=== PATIENT | female | born 1985 | race Caucasian/White ===

== ENCOUNTER → 2018-09-12 | Outpatient (CLI) | payer MEDICAID | LOC: FIMAGING 09:35 | PROVIDERS: ATTEND Obstetrics & Gynecology | DX: O44.12 Complete placenta previa with hemorrhage, second trimester (principal); Z3A.26 26 weeks gestation of pregnancy ==

== ENCOUNTER 2018-10-18 10:11 | Observation (INO) | payer MEDICAID ==
[2018-10-18] MEDS ORDERED: ACETAMINOPHEN 500 MG TAB PO ONE (10:45)
[2018-10-18] MEDS: LR 1,000 ML IV SCH ×5 (11:15→21:12)
[2018-10-18] MEDS ORDERED: BETAMETHASONE IM SYRINGE IM ONE (15:00)
[2018-10-18] MEDS ORDERED: OLIVE OIL 118 ML BTL MISC ONE (18:33)
[2018-10-18] MEDS ORDERED: LIDOCAINE 1% 300 MG/30 ML SDV ONE (18:33)
[2018-10-18] MEDS ORDERED: AMMONIA AROMATIC 1 EACH AMP IH ONE (18:34)
[2018-10-18] MEDS ORDERED: MISOPROSTOL 200 MCG TAB ONE (18:34)
[2018-10-18] MEDS ORDERED: TERBUTALINE SULFATE 1 MG/ML VIAL ONE (18:34)
[2018-10-18] MEDS ORDERED: OXYTOCIN 10 UNIT/ML VIAL ONE (18:34)
[2018-10-18] MEDS: NIFEdipine 10 MG CAP PO SCH ×2 (19:38→23:49)
[2018-10-19] MEDS ORDERED: ZOLPIDEM TARTRATE 5 MG TAB PO ONE (00:15)
[2018-10-19] MEDS: NIFEdipine 10 MG CAP PO SCH ×2 (05:53→11:58)
[2018-10-19] MEDS: LR 1,000 ML IV SCH ×2 (05:57→16:32)
[2018-10-19] MEDS ORDERED: BETAMETHASONE IM SYRINGE IM ONE (15:00)
[2018-10-19] MEDS ORDERED: NIFEdipine 10 MG CAP PO SCH (18:54)
== END 2018-10-19 21:28 | disposition home or self-care (01) ==
DX: O47.03 False labor before 37 completed weeks of gestation, third trimester (principal); O44.13 Complete placenta previa with hemorrhage, third trimester; O21.0 Mild hyperemesis gravidarum; O99.013 Anemia complicating pregnancy, third trimester; Z3A.33 33 weeks gestation of pregnancy; D64.9 Anemia, unspecified

== ENCOUNTER 2018-11-05 20:05 | Inpatient (IN) | payer MEDICAID ==
[2018-11-05 20:31] LABS: PLATELET COUNT 224 10^3/uL (150-400)
[2018-11-05] MEDS ORDERED: PHENYLEPHRINE HCL 100 MCG/ML SYR IVP PRN (20:33)
[2018-11-05] MEDS ORDERED: ONDANSETRON 4 MG/2 ML VIAL IVP PRN (20:33)
[2018-11-05] MEDS ORDERED: NALOXONE HCL 0.4 MG/ML INJ IVP PRN (20:33)
[2018-11-05] MEDS ORDERED: fentaNYL 100 MCG/2 ML INJ IVP PRN (20:33)
[2018-11-05] MEDS ORDERED: HYDROmorphONE/DILAUDID 1 MG/ML INJ IVP PRN (20:33)
--- NOTE | 2018-11-05 20:36 | PREANESOB ---
Obstetric Pre-Anesthesia Info - General Info Proposed Procedure: NPO Start Time: 18:00 : 2 Para: 1 LEONARD: 12/02/18 Gestational Age: 36 week(s) and 1 day(s) - Info Status: Full Term - Labor Status Section History: Primary Anesthesia Allergies/Adverse Reactions: Allergy/AdvReac Type Severity Reaction Status Date / Time Theophylline Allergy Severe Anaphylaxis Uncoded 11/05/18 20:13 Home Medications: Medication Instructions Recorded Vit27&Calcium/Iron/FA 1 tab PO DAILY 10/18/18 [] - Vital Signs Latest Vital Signs (Nursing): Temp Pulse Resp BP Pulse Ox 37.3 C 70 16 114/69 96 11/05/18 20:24 11/05/18 20:24 11/05/18 20:24 11/05/18 20:24 11/05/18 20:24 Height/Weight (Nursing): Height 64 cm Weight 74.843 kg - Focused Exam Neck exam: FROM Mallampati Score: Class 2 Mouth exam: normal dental/mouth exam Pulmonary: clear to auscultation Cardiovascular: regular rate and rhythym Labs: 11/05/18 20:18 - Plan Consent Signed and on Chart: Yes
[2018-11-05] MEDS ORDERED: BUPIVACAINE/DEXTROSE 7.5MG/ML 2 ML SPINAL AMP SP ONE (20:37)
[2018-11-05] MEDS ORDERED: LR 500 ML IV ONE (20:37)
[2018-11-05] MEDS ORDERED: morphINE PF 5 MG/10 ML INJ ONE (20:37)
[2018-11-05] MEDS ORDERED: ceFAZolin 2 GM/DEXTROSE 100 ML IV ONE (20:37)
[2018-11-05] MEDS ORDERED: RANITIDINE 50 MG/2 ML VIAL ONE (20:38)
[2018-11-05] MEDS ORDERED: OXYTOCIN 100 UNITS/10 ML VIAL ONE (20:39)
[2018-11-05] MEDS ORDERED: OXYTOCIN 10 UNIT/ML VIAL ONE (20:39)
[2018-11-05] MEDS ORDERED: MISOPROSTOL 200 MCG TAB ONE (20:39)
[2018-11-05] MEDS ORDERED: ONDANSETRON 4 MG/2 ML VIAL ONE (20:39)
[2018-11-05] MEDS ORDERED: HEMABATE 250 MCG/1 ML AMP IM ONE (20:39)
[2018-11-05] MEDS ORDERED: TRANEXAMIC ACID 1,000 MG/10 ML VIAL ONE (20:39)
[2018-11-05] MEDS ORDERED: METHYLERGONOVINE MAL 0.2 MG/ML INJ ONE (20:40)
--- NOTE | 2018-11-05 21:10 | GHP ---
[f rep st] HISTORY AND PHYSICAL DATE OF ADMISSION: 11/05/2018 ADMISSION DIAGNOSES: 1. Intrauterine at 36 and 1/7 weeks' gestation. 2. Known placenta previa with bleeding and contractions. HISTORY OF PRESENT ILLNESS: The patient is a 33-year-old 2, para 1-0-0-1 who is 36 and 1/7 w eeks' gestation. Her estimated date of confinement is 11/18/2018, dated by a 10-week ultrasound. Gerald heredia has had several episodes of bleeding during her . She has seen [facility] and was diagnosed with a complete placenta previa. Her most recent ultrasound with them was on 06/2018, when she was admitted for bleeding and contractions at 34 weeks' gestation. Patient cancele d her followup visit in our office. She began having bleeding and cramping this evening. She arrive d to Labor and Delivery and was breathing through contractions and then having bright red bleeding. status is reassuring. Because the patient is past 36 weeks' gestation, bleeding, and having re gular contractions, decision was made to proceed with a primary low transverse section. Ris ks and benefits were reviewed with the patient and patient is properly consented. MEDICAL HISTORY: Significant for beta thalassemia carrier and childhood asthma. No issues since chi ldhood. MEDICATIONS: vitamins and iron. SURGICAL HISTORY: None. ALLERGIES: Theophylline, which causes anaphylaxis. SOCIAL HISTORY: The patient is single. She denies tobacco or alcohol use in . She has bee n smoking marijuana regularly throughout . FAMILY MEDICAL HISTORY: Noncontributory. OBSTETRICAL/GYNECOLOGICAL HISTORY: Menarche age 15, periods every 30 days, lasting 5 to 6 days. She is 2, para 1-0-0-1. In 2017, she had a viable, 6-pound 7-ounce male , unmedicated at [place] with the midwives. Current has been complicated by placenta previa. Baby also had an echogenic intracardiac foci, which had a negative anti PT. The patient denies any history of abnorm al Pap smears or sexually transmitted diseases. REVIEW OF SYSTEMS: A 10-point review of systems is negative with the exception of the above-mentione d pertinent positives. Positive movement. No loss of fluid. Yes vaginal bleeding. She is perea ving contractions. She denies any headache or changes in vision. PHYSICAL EXAMINATION: VITAL SIGNS: Stable. GENERAL APPEARANCE: Alert and oriented x3. HEART: Re gular. LUNGS: Clear to auscultation bilaterally. ABDOMEN: Gravid, nondistended, nontender. EXTRE MITIES: No calf tenderness or edema. PELVIC: Deferred. Pelvic ultrasound showed a baby in the bernice shala presentation. heart tracing is category 1 and she is having contractions every 2 to 3 sd evin. PSYCHIATRIC: Appropriate affect. MUSCULOSKELETAL: Grossly intact. NEUROLOGICAL: Grossly in tact. LABORATORY: Blood type O positive. Antibody screen negative. Rubella immune. GBS is unkn own. HBsAg negative. HIV negative. Her Verifi is negative. ASSESSMENT AND PLAN: A 33-year-old 2, para 1-0-0-1 at 36 and 1/[address] with [address] nta previa, contractions and vaginal bleeding. We are going to proceed with a primary low tr ansverse section. Risks and benefits have been reviewed with the patient and patient has be en properly consented. /[id number]/MODL
--- NOTE | 2018-11-05 22:21 | POSTANESTH ---
Post Anesthetic Evaluation Cardiovascular Status: Normal, Stable Respiratory Status: Normal, Stable Level of Consciousness/Mental Status: Can Participate in Eval, Alert and Oriented Pain Control: Adequate, Prn Tx Ordered Nausea/Vomiting Control: Adequate, Prn Tx Ordered Complications Possibly Related to Anesthesia: None Noted
--- NOTE | 2018-11-05 22:25 | OBGCSDC ---
General Delivery Information - General Info : 2 Para: 1 Abortions: 0 Type: Primary L&D Analgesia/Anesthesia Type: Spinal Admission Date: 11/05/18 Labs: Patient ABO/Rh O POSITIVE 11/05/18 20:18 Hct 37.2 % (38.0-47.0) L 11/05/18 20:18 Temp Pulse Resp BP Pulse Ox 11/05/18 20:24 37.3 C 70 16 114/69 96 - Hospital Course Antepartum: 11/05/18 22:23 initiated care with midwives. anatomy us showed placenta previa at 20 weeks. did not resolve. was admitted at 32 weeks for contractions and bleeding. stated yohan and bleeding the night of delivery - Delivery Providers Surgeon: Rosalba Chavez Butane Compressor Operator: Amna Cross Anesthesiologist: Gilberto Smalls - Delivery Number of Prior Sections: 0 Surgical Procedures: Unscheduled, Low Transverse Intra-op Complications: None EBL: 800 Data LEONARD: 12/02/18 Gestational Age: 36 week(s) and 1 day(s) Haddad Delivery Date: 11/05/18 Sex of : Male
[2018-11-05] MEDS ORDERED: BISACODYL 10 MG SUPP PR PRN (22:27)
[2018-11-05] MEDS ORDERED: POLYETHYLENE GLYCOL 3350 17 GM PKT PO PRN (22:27)
[2018-11-05] MEDS ORDERED: LACTULOSE 20 GM/30 ML UDCUP PO PRN (22:27)
[2018-11-05] MEDS ORDERED: MAGNESIUM HYDROXIDE 30 ML UDCUP PO PRN (22:27)
[2018-11-05] MEDS ORDERED: SIMETHICONE 80 MG TAB CHEW PO PRN (22:27)
--- NOTE | 2018-11-05 22:27 | OBDEL ---
Info Type: Primary Presentation at Delivery: Vertex L&D Analgesia/Anesthesia Type: Spinal GBS+: No Indications for Delivery: Spontaneous Labor, Placenta Previa Operative Report - Delivery Pre-op Diagnoses: iup 36 1/7 weeks, placenta previa, bleeding, contractions Post-op Diagnoses: same as preop History of Prior Section: No Nulliparous Prior to Delivery: No Indications for Current Section: Placenta Previa Procedure: Unscheduled, Low Transverse Surgeon: Rosalba Chavez Laborer Wharf: Amna Cross Complications: None EBL: 800 [place] Data LEONARD: 12/02/18 Gestational Age: 36 week(s) and 1 day(s) Haddad Delivery Date: 11/05/18 Delivery Time: 21:21 Sex of : Male Supai Weight (gm): 2144 kg Score (1 Min): 8 Score (5 Min): 8 ICD10 Worksheet Patient Problems: Problems Problem Status Onset Complete placenta previa nos or without hemorrhage, third trimester Acute with 34 completed weeks gestation Acute contractions Acute
[2018-11-05] MEDS ORDERED: DIPHENOXYLATE/ATROPINE LOMOTIL 1 TAB PO PRN (22:31)
[2018-11-05] MEDS ORDERED: KETOROLAC 30 MG/1 ML SDV ONE (23:40)
[2018-11-05] MEDS: KETOROLAC 30 MG/1 ML SDV IVP SCH (23:42)
[2018-11-05] MEDS: IBUPROFEN 600 MG TAB PO SCH (23:45)
[2018-11-06] MEDS: LR 1,000 ML IV SCH ×2 (00:08→06:08)
--- NOTE | 2018-11-06 00:15 | GOP ---
[f rep st] OPERATIVE REPORT DATE OF OPERATION: 11/05/2018 SURGEON: Rosalba Chavez DO RADIO RIGGER: GIGI Masters. ANESTHESIA: Spinal with Duramorph. ANESTHESIOLOGIST: Gilberto Smalls DO. PREOPERATIVE DIAGNOSIS: Intrauterine at 36 and 1/7 weeks' gestation and placenta previa bl eeding with contractions. POSTOPERATIVE DIAGNOSIS: Intrauterine at 36 and 1/7 weeks' gestation and placenta previa b leeding with contractions. PROCEDURE PERFORMED: Primary low-transverse section. FINDINGS: 1. Viable male in the cephalic presentation delivered at 2120. Apgars were 8 and 8. 2. Intact placenta with three-vessel cord. 3. Normal ovaries, uterus, and tubes. ESTIMATED BLOOD LOSS: 800 cc. INDICATIONS: Patient is a 33-year-old, 2, para 1-0-0-1, who was 36 and 1/7 weeks' gestation. She had a known placenta previa and began having yohan and vaginal bleeding this evening. Sh e was having contractions every 3-5 minutes and breathing through the contractions. Decision was mad e to proceed with a primary low-transverse section. Risks and benefits were reviewed with dary grider patient. Patient was properly consented. DESCRIPTION OF PROCEDURE: Patient was taken to the operating room with intravenous fluids in place. She was given 2 g of Ancef. She was then seated on the operating room table where spinal anesthesia was attained. She was then repositioned into the dorsal supine position with a leftward tilt. Fole y catheter was placed. Venodynes were placed on her lower extremities. She was then prepped and yaz ped in normal sterile fashion. Anesthesia was assessed and found to be adequate. A Pfannenstiel ski n incision was then made 2 fingerbreadths above the pubic symphysis. The incision was then carried t hrough the underlying layer of fascia with the Bovie. The fascia was then nicked in the midline, and the fascial incision was extended laterally. The superior aspect of the fascial incision was then g rasped with Kochers, tented up, and the underlying rectus muscle dissected off bluntly with the Bovie . Attention was then turned to the inferior aspect of the fascial incision, which was grasped with a Judie, tented up, and the underlying rectus muscle dissected off bluntly with the Bovie. The rectu s muscle was then in the midline. Peritoneum was identified, tented up, and entered sharpl y with the Metzenbaum scissors. The incision was extended superiorly and inferiorly with excellent v isualization of the bladder. The bladder blade was then inserted. The vesicouterine peritoneum was identified, tented up, and entered sharply with the Metzenbaum scissors. The incision was then exten ded laterally, and a bladder flap was created digitally. The lower uterine segment was then incised in a low-transverse fashion with the scalpel. The uterine incision was extended laterally. The plac enta was noted to be cut through to get to the baby. The 's head was then delivered through th e incision without difficulty, and the viable male was then delivered without difficulty. Del ayed cord clamping was done for only a few seconds as baby was not vigorous. Cord was then clamped x 2 and cut, and the was handed off to awaiting nurse practitioner. Intact placenta wi th three-vessel cord delivered without difficulty. The uterus was then exteriorized and cleared of a ll clots and debris and wrapped in moist laparotomy sponge. Bladder blade was then reinserted. An 0 Vicryl stitch was used to close the hysterotomy. A second 0 Vicryl stitch was used to imbricate the uterine incision. There was an area on the angle on the left side of the uterus which continued to have bleeding. Hemostasis was then achieved with an 0 Vicryl suture. The gutters were cleared of al l clots and debris. The uterus was then returned to the patient's abdomen. The hysterotomy remained hemostatic. Peritoneum was reapproximated with 3-0 Vicryl in a running fashion. Rectus muscle was reapproximated with a 2-0 Vicryl in a running fashion. Fascia was closed with 0 Vicryl in a running fashion. Lilo's tissue was reapproximated with 2-0 Vicryl in a running fashion. Subcuticular tiss ue was reapproximated with 3-0 Vicryl in a running fashion. The skin was then closed with caryn. Sponge, lap, and needle counts correct x2. Patient was transported to recovery room in [facility]. /[id number]/MODL
[2018-11-06] MEDS ORDERED: ONDANSETRON 4 MG/2 ML VIAL ONE (00:32)
[2018-11-06] MEDS: ACETAMINOPHEN 325 MG TAB PO SCH ×4 (02:06→20:23)
[2018-11-06] MEDS: KETOROLAC 30 MG/1 ML SDV IVP SCH ×3 (06:08→17:51)
[2018-11-06] MEDS: IBUPROFEN 600 MG TAB PO SCH ×4 (06:09→20:24)
--- NOTE | 2018-11-06 12:25 | OBPP ---
Progress Note Assessment/Plan: Assessment: 33 yo now , POD1 s/p PLTCS for complete previa and bleeding. - Mcmanus out, IVF off. - Zofran 4mg IV PRN now. - Bandage off and shower at 24 hrs. - Routine cares. - Rh Neg, Rubella immune. - Started on BID ferrous sulfate due to hct 28. JM Subjective/ Course: Leela is doing great for pain control (currently reports "none" with no pain meds taken), but is quite nauseous. Refusing PO antiemetics. Hasn't been up and about at all, and mcmanus is still in, bc she's nauseous when she gets up. BF going well, doing fine otherwise. Objective: 11/06/18 06:15 Patient ABO/Rh O POSITIVE 11/05/18 20:18 Temp Pulse Resp BP Pulse Ox 36.3 C 57 L 16 105/66 95 11/06/18 09:19 11/06/18 09:19 11/06/18 09:19 11/06/18 09:19 11/06/18 09:19
[2018-11-06] MEDS ORDERED: ONDANSETRON 4 MG/2 ML VIAL IVP PRN (12:36)
[2018-11-06] MEDS: SENNOSIDES/DOCUSATE SODIUM TAB PO SCH ×2 (13:17→20:24)
--- NOTE | 2018-11-06 17:38 | PDPAINCON ---
Pain Management Consultation Patient referred by : Kathy - Subjective Pain is: low, well controlled - Objective Technique: spinal opioid Continuous infusion: morphine Sensory and motor exam: block has resolved, no apparent ill effects Vital signs: stable - Assessment/Plan Assessment/Plan: other (Pt doing well s/p intrathecal duramorph for . Pain very well controlled. No headache, no backache, no complications.)
[2018-11-06] MEDS: FERROUS SULFATE 325 MG TAB PO SCH ×2 (17:51→20:24)
[2018-11-07] MEDS: ACETAMINOPHEN 325 MG TAB PO SCH ×4 (01:54→20:24)
[2018-11-07] MEDS: IBUPROFEN 600 MG TAB PO SCH ×3 (06:07→18:24)
[2018-11-07] MEDS: FERROUS SULFATE 325 MG TAB PO SCH ×2 (08:07→20:24)
--- NOTE | 2018-11-07 09:00 | OBPP ---
Progress Note Assessment/Plan: Assessment: 33 y/o POD #2 s/p LTCS @ 36 weeks secondary to bleeding previa Plan: Will give abdominal binder today. Encourage bowel protocol, ambulation today. support and routine POC. 11/07/18 09:00 Subjective/ Course: Leela is doing great for pain control (currently reports "none" with no pain meds taken), but is quite nauseous. Refusing PO antiemetics. Hasn't been up and about at all, and mcmanus is still in, bc she's nauseous when she gets up. BF going well, doing fine otherwise. 11/07/18 08:57 Pt is doing well this am. She is having min pain with moving and getting up, but mostly controlled with Ibuprofen. No n/v, mat reg diet. Ambulating and voiding without difficulty and has min lochia. She has not had a BM yet. Objective: 11/06/18 06:15 Patient ABO/Rh O POSITIVE 11/05/18 20:18 Temp Pulse Resp BP Pulse Ox 36.8 C 66 16 87/56 L 100 11/07/18 06:10 11/07/18 06:10 11/07/18 06:10 11/07/18 06:10 11/07/18 06:10 Uterine Position/Fundal Height: Umbilicus -2 Uterine Tone: Firm Physical Exam - Physical Exam General Appearance: alert, no apparent distress Neck: non-tender, full range of motion, supple Respiratory: chest non-tender, lungs clear, normal breath sounds Cardiac/Chest: regular rate, rhythm Abdomen: normal bowel sounds, incision (c/d/i) Extremities: swelling (no), Sabi's sign (neg)
[2018-11-07] MEDS: SENNOSIDES/DOCUSATE SODIUM TAB PO SCH ×2 (11:26→20:25)
[2018-11-07] MEDS: oxyCODONE IR 5 MG TAB PO PRN ×2 (14:23→20:24)
[2018-11-08] MEDS: IBUPROFEN 600 MG TAB PO SCH ×3 (00:33→10:15)
[2018-11-08] MEDS: ACETAMINOPHEN 325 MG TAB PO SCH ×2 (06:20→08:54)
--- NOTE | 2018-11-08 09:04 | OBPP ---
Progress Note Assessment/Plan: Assessment: 33 you POD#3 s/p primary LTCS at 36w1d in setting of bleeding previa. Doing well. Plan: DC home. Std post op C/S instructions reviewed. Ssx pp depression also reviewed. See dc summary. Lilibeth Serrano MD, FACOG 11/08/18 08:41 Subjective/ Course: Leela is doing great for pain control (currently reports "none" with no pain meds taken), but is quite nauseous. Refusing PO antiemetics. Hasn't been up and about at all, and mcmanus is still in, bc she's nauseous when she gets up. BF going well, doing fine otherwise. 11/07/18 08:57 Pt is doing well this am. She is having min pain with moving and getting up, but mostly controlled with Ibuprofen. No n/v, mat reg diet. Ambulating and voiding without difficulty and has min lochia. She has not had a BM yet. 11/08/18 09:43 Pt is doing great. Ibuprofen and oxycodone sufficient for pain. Ambulating, voiding, mat reg diet all without difficutly. Mod lochia. + flatus. Objective: 11/06/18 06:15 Patient ABO/Rh O POSITIVE 11/05/18 20:18 Temp Pulse Resp BP Pulse Ox 37.2 C 74 14 101/60 96 11/08/18 02:15 11/08/18 02:15 11/08/18 02:15 11/08/18 02:15 11/08/18 02:15 gen - pleasant, NAD CV - RRR chest - CTAB abd - soft, + BS, fundus firm at umbilicus-2, inc- c/d/i with caryn ext - trace edema, no calf tenderness Uterine Position/Fundal Height: Umbilicus -2 Uterine Tone: Firm
[2018-11-08 09:13] VITALS: BP 118/73
--- NOTE | 2018-11-08 09:59 | OBGCSDC ---
General Delivery Information - General Info : 2 Para: 2 Abortions: 0 Type: Primary L&D Analgesia/Anesthesia Type: Spinal Admission Date: 11/05/18 Labs: Patient ABO/Rh O POSITIVE 11/05/18 20:18 Hct 28.1 % (38.0-47.0) L 11/06/18 06:15 Temp Pulse Resp BP Pulse Ox 11/08/18 09:07 37.1 C 84 16 118/73 94 11/08/18 02:15 37.2 C 74 14 101/60 96 11/07/18 20:00 37.4 C 68 16 99/55 L 96 - Hospital Course : Leela is doing great for pain control (currently reports "none" with no pain meds taken), but is quite nauseous. Refusing PO antiemetics. Hasn't been up and about at all, and mcmanus is still in, bc she's nauseous when she gets up. BF going well, doing fine otherwise. 11/07/18 08:57 Pt is doing well this am. She is having min pain with moving and getting up, but mostly controlled with Ibuprofen. No n/v, mat reg diet. Ambulating and voiding without difficulty and has min lochia. She has not had a BM yet. 11/08/18 09:43 Pt is doing great. Ibuprofen and oxycodone sufficient for pain. Ambulating, voiding, mat reg diet all without difficutly. Mod lochia. + flatus. - Delivery Providers Surgeon: Rosalba Chavez Triple Drum Operator: Amna Cross - Delivery Number of Prior Sections: 0 Indications for Current Section: Placenta Previa Surgical Procedures: Unscheduled, Low Transverse Intra-op Complications: None EBL: 800 [place] Data LEONARD: 12/02/18 Gestational Age: 36 week(s) and 4 day(s) Haddad Delivery Date: 11/05/18 Delivery Time: 21:21 Sex of : Male Weight (gm): 2144 g Score (1 Min): 8 Score (5 Min): 8 Discharge Information - Discharge Information Prescriptions: oxyCODONE IR [Oxycodone Ir (*)] 5 - 10 mg PO Q4HRS PRN #20 tab PRN Reason: Pain, Severe Able To Take Po Condition: Good Instruction/Follow Up: See Instruction Sheet, Two Weeks (incision check with [facility] , mood check with [facility]), Six Weeks (pp exam at [facility])
[2018-11-08] MEDS: FERROUS SULFATE 325 MG TAB PO SCH (10:15)
[2018-11-08] MEDS: SENNOSIDES/DOCUSATE SODIUM TAB PO SCH (10:21)
== END 2018-11-08 11:29 | disposition home or self-care (01) | DRG 540 ==
LOC: FLD 20:05 → FOB 11-06 00:45
PROVIDERS: ADMIT Obstetrics & Gynecology; ATTEND Obstetrics & Gynecology
PROC: 10D00Z1 Extraction of Products of Conception, Low, Open Approach (ICD-10-PCS; principal; 2018-11-05)
DX: O44.13 Complete placenta previa with hemorrhage, third trimester (principal); Z37.0 Single live birth; Z3A.36 36 weeks gestation of pregnancy
CPT/HCPCS: J0690; J1885; J2210; J2274; J2405; J2590; J2780